=== PATIENT | male | born 1970 | race Caucasian/White ===

== ENCOUNTER 2018-08-03 17:20 | Inpatient (IN) | payer OTHER, SELFPAY ==
--- NOTE | 2018-08-03 17:52 | EDPHYS ---
Physician Documentation [facility] Name: Chandrakant Story Age: 48 yrs Sex: Male : 1970 Arrival Date: 08/03/2018 Time: 17:22 Bed 20 Private MD: None, None ED Physician Ronen Ramirez HPI: 08/03 18:27 This 48 yrs old Male presents to ER via Ambulatory with complaints of gs Numbness Of Face - SENT BY DRMelvin 18:27 The patient's problem is reported as a facial droop, bilaterally. Onset: The gs symptoms/episode began/occurred 2 day(s) ago, and became worse and became persistent. Context: recent viral illness seen by dr tate sent over for work up. The symptoms are alleviated by nothing. The symptoms are aggravated by nothing. Severity of symptoms: At their worst the symptoms were severe in the emergency department the symptoms are unchanged. The patient has not experienced similar symptoms in the past. Historical: - Allergies: 17:31 No Known Allergies; hb - PMHx: 17:31 Diabetes - NIDDM; hb - PSHx: 17:31 back; hb - Immunization history:: Adult Immunizations up to date. - Social history:: Smoking status: Patient/guardian denies using tobacco. - Ebola Screening: : No symptoms or risks identified at this time. ROS: 18:27 All other systems are negative. gs Exam: 18:27 CT study not indicated or reported. Reason for not performing CT: pt states negative gs at [facility] last night 18:27 Head/Face: Normocephalic, atraumatic. Eyes: Pupils equal round and reactive to light, extra-ocular motions intact. Lids and lashes normal. Conjunctiva and sclera are non-icteric and not injected. Cornea within normal limits. Periorbital areas with no swelling, redness, or edema. ENT: Nares patent. No nasal discharge, no septal abnormalities noted. Tympanic membranes are normal and external auditory canals are clear. Oropharynx with no redness, swelling, or masses, exudates, or evidence of obstruction, uvula midline. Mucous membranes moist. Neck: Trachea midline, no thyromegaly or masses palpated, and no cervical lymphadenopathy. Supple, full range of motion without nuchal rigidity, or vertebral point tenderness. No Meningismus. Chest/axilla: Normal chest wall appearance and motion. Nontender with no deformity. No lesions are appreciated. Cardiovascular: Regular rate and rhythm with a normal S1 and S2. No gallops, murmurs, or rubs. Normal PMI, no JVD. No pulse deficits. Respiratory: Lungs have equal breath sounds bilaterally, clear to auscultation and percussion. No rales, rhonchi or wheezes noted. No increased work of breathing, no retractions or nasal flaring. Abdomen/GI: Soft, non-tender, with normal bowel sounds. No distension or tympany. No guarding or rebound. No evidence of tenderness throughout. Back: No spinal tenderness. No costovertebral tenderness. Full range of motion. Skin: Warm, dry with normal turgor. Normal color with no rashes, no lesions, and no evidence of cellulitis. MS/ Extremity: Pulses equal, no cyanosis. Neurovascular intact. Full, normal range of motion. 18:27 Constitutional: The patient appears in no acute distress, alert. 18:27 Neuro: Orientation: is normal, Mentation: is normal, Cranial nerves: facial droop noted on right, facial droop noted on left, Motor: Sensation: no obvious gross deficits, Gait: is steady. Vital Signs: 17:30 BP 135 / 88; Pulse 95; Resp 16; Temp 98; Pulse Ox 97% on R/A; Pain 2/10; hb 18:00 BP 125 / 89; Pulse 88; Resp 16; Temp 97.8; Pulse Ox 99% on R/A; Pain 2/10; ch 18:40 Weight 98.88 kg; iw 19:05 BP 124 / 82; Pulse 71; Resp 15; Temp 97.8; Pulse Ox 99% on R/A; Pain 4/10; ch 20:50 BP 129 / 90; Pulse 90; Resp 20 S; Pulse Ox 97% on R/A; jd3 Procedures: 18:27 Lumbar Puncture: Patient placed in sitting position. Prepped with Betadine. Draped gs using sterile technique. Procedure unsuccessful. Patient tolerated well. went midline just above midline scar, hit bone. MDM: 17:35 Patient medically screened. gs 18:27 Differential diagnosis: paralysis, metabolic disorder, gbm, everett wheat. Data gs reviewed: vital signs, nurses notes. 08/03 17:37 Order name: CBC with Diff gs 08/03 17:37 Order name: Basic Metabolic Panel 08/03 17:37 Order name: Blood Culture* 08/03 17:37 Order name: Csf Culture 08/03 17:37 Order name: Fluid Cell Count,Body 08/03 17:37 Order name: Spinal Fluid Profile 08/03 17:37 Order name: Csf Glucose 08/03 17:37 Order name: Csf Total Protein 08/03 19:56 Order name: Body Fluid Cell Count EDMA 08/03 19:56 Order name: Protein Electo w/M Jose Elias Serum EDMS 08/03 19:56 Order name: Thyroid Stimulating Hormone EDMA 08/03 19:56 Order name: Gram Stain EDMA 08/03 20:01 Order name: CSF Glucose EDMA 08/03 20:01 Order name: CSF Total Protein EDMA 08/03 17:37 Order name: LP Setup; Complete Time: 19:03 08/03 17:37 Order name: LP Consents; Complete Time: 19:03 08/03 20:01 Order name: Angiotensin Converting Enzyme EDMA 08/03 20:09 Order name: Brain W/Wo Cont EDMA 08/03 20:10 Order name: Fluoro Guide Spinal Inj EDMA 08/03 20:11 Order name: Protime (+INR) EDMA 08/03 20:11 Order name: PTT, Activated Partial Thromb EDMA 08/03 21:13 Order name: RPR EDMA 08/03 21:37 Order name: Sedimentation Rate, Westergren EDMA 08/03 22:24 Order name: Vitamin D, 25 ([place]), TOTAL EDMS Administered Medications: 18:20 Drug: NS 0.9% 1000 ml Route: IV; Rate: 1 bolus; Site: left hand; ch 19:20 Follow up: Response: No adverse reaction; IV Status: Completed infusion; IV Intake: jd3 1000ml 18:40 Drug: Zofran 4 mg Route: IVP; Site: left hand; ch 19:30 Follow up: Response: No adverse reaction jd3 Disposition: 08/03/18 17:51 Hospitalization ordered by Maribel Bates for Inpatient Admission. 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 - Bed requested for Intensive Care Unit. - Status is Inpatient Admission. jd3 - Condition is Stable. - Problem is new. - Symptoms are resolved. UTI on Admission? No Critical care time excluding procedures: 18:27 Critical care time: Bedside Care: 10 minutes, Consultation: 10 minutes, Family gs Intervention: 10 minutes. Total time: 30 minutes Signatures: Dispatcher [employer] EDMA Maki Alvarado rg2 Spring Pruett, RN Mary Lomeli ch, RN RN kl Baxter, Heather, RN RN Ronen Ramirez MD MD gs Davies, Jonathon, RN RN jd3 Corrections: (The following items were deleted from the chart) 18:05 17:38 Head Brain Wo Cont+CT.RAD.BRZ ordered. [facility] EDMA 18:42 18:04 Brain With Cont ordered. [facility] EDMA 18:58 17:51 Hospitalization Ordered by Maribel Bates MD for Inpatient Admission. Preliminary rg2 diagnosis is Guillain-Gladbrook syndrome. Bed requested for Telemetry/MedSurg (Inpatient). Status is Inpatient Admission. Condition is Stable. Problem is new. Symptoms are resolved. UTI on Admission? No. gs 20:10 19:56 Fluoro Guide Spinal Inj ordered. [facility] EDMA 21:21 18:58 08/03/2018 17:51 Hospitalization Ordered by Maribel Bates MD for Inpatient kl Admission. 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 Bed requested for Telemetry/MedSurg (Inpatient). Status is Inpatient Admission. Condition is Stable. Problem is new. Symptoms are resolved. UTI on Admission? No. rg2 22:34 21:21 08/03/2018 17:51 Hospitalization Ordered by Maribel Bates MD for Inpatient jd3 Admission. 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 Bed requested for Intensive Care Unit. Status is Inpatient Admission. Condition is Stable. Problem is new. Symptoms are resolved. UTI on Admission? No. kl
--- NOTE | 2018-08-03 17:52 | ER ---
Nurse's Notes [facility] Name: Chandrakant Story Age: 48 yrs Sex: Male : 1970 Arrival Date: 08/03/2018 Time: 17:22 Bed 20 Private MD: None, None Diagnosis: Guillain-[place] syndrome Presentation: 08/03 17:29 Presenting complaint: Patient states: Sent by Dr. Hedrick for bilateral facial numbness hb .and slurred speech. Transition of care: patient was received from another setting of care (hospital). Onset of symptoms was August 03, 2018. Risk Assessment: Do you want to hurt yourself or someone else? Patient reports no desire to harm self or others. 17:29 Method Of Arrival: Ambulatory hb 17:29 Acuity: KATE 3 hb 21:02 Initial Sepsis Screen: Does the patient meet any 2 criteria? No. Patient's initial jd3 sepsis screen is negative. Does the patient have a suspected source of infection? No. Patient's initial sepsis screen is negative. Care prior to arrival: None. Historical: - Allergies: 17:31 No Known Allergies; hb - PMHx: 17:31 Diabetes - NIDDM; hb - PSHx: 17:31 back; hb - Immunization history:: Adult Immunizations up to date. - Social history:: Smoking status: Patient/guardian denies using tobacco. - Ebola Screening: : No symptoms or risks identified at this time. Screenin:05 Abuse screen: Denies threats or abuse. Denies injuries from another. Nutritional ch screening: No deficits noted. Tuberculosis screening: No symptoms or risk factors identified. Fall Risk None identified. Assessment: 18:00 General: Appears in no apparent distress. uncomfortable, Behavior is calm, cooperative, ch appropriate for age. Pain: Denies pain. Neuro: Level of Consciousness is awake, alert, obeys commands, Oriented to person, place, time, situation, Interventional Radiology Tech are equal bilaterally Moves all extremities. Full function Gait is steady, Speech is normal, Facial symmetry appears normal, Facial symmetry: tongue is midline, Pupils are PERRLA, Reports blurred vision dizziness, paresthesias weakness. Respiratory: Airway is patent Respiratory effort is even, unlabored, Breath sounds are clear bilaterally. GI: No signs and/or symptoms were reported involving the gastrointestinal system. Derm: Skin is pale. 19:26 Reassessment: Patient appears in no apparent distress at this time. Patient and/or ch family updated on plan of care and expected duration. Pain level reassessed. Patient is alert, oriented x 3, equal unlabored respirations, skin warm/dry/pink. Patient states feeling better. Patient states symptoms have improved. 20:15 Reassessment: started IGG. jd3 20:30 Reassessment: Patient appears in no apparent distress at this time. No changes from jd3 previously documented assessment. Patient and/or family updated on plan of care and expected duration. Pain level reassessed. Patient is alert, oriented x 3, equal unlabored respirations, skin warm/dry/pink. 21:30 Reassessment: Patient appears in no apparent distress at this time. No changes from jd3 previously documented assessment. Patient and/or family updated on plan of care and expected duration. Pain level reassessed. Patient is alert, oriented x 3, equal unlabored respirations, skin warm/dry/pink. 22:15 Reassessment: started second vile of IGG. jd3 22:33 Reassessment: Patient appears in no apparent distress at this time. No changes from jd3 previously documented assessment. Patient and/or family updated on plan of care and expected duration. Pain level reassessed. Patient is alert, oriented x 3, equal unlabored respirations, skin warm/dry/pink. Vital Signs: 17:30 BP 135 / 88; Pulse 95; Resp 16; Temp 98; Pulse Ox 97% on R/A; Pain 2/10; hb 18:00 BP 125 / 89; Pulse 88; Resp 16; Temp 97.8; Pulse Ox 99% on R/A; Pain 2/10; ch 18:40 Weight 98.88 kg; iw 19:05 BP 124 / 82; Pulse 71; Resp 15; Temp 97.8; Pulse Ox 99% on R/A; Pain 4/10; ch 20:50 BP 129 / 90; Pulse 90; Resp 20 S; Pulse Ox 97% on R/A; jd3 ED Course: 17:22 Patient arrived in ED. sb2 17:23 None, None is Private Physician. sb2 17:30 Triage completed. hb 17:31 Arm band placed on left wrist. hb 17:35 Ronen Ramirez MD is Attending Physician. gs 17:46 Spring Pruett, RN is Primary Nurse. 17:50 Maribel aBtes MD is Hospitalizing Provider. gs 17:55 No apparent distress. Resting quietly. ch 17:55 Missed attempt(s): 20 gauge in left forearm. Bleeding controlled, band aid applied, catheter tip intact. 18:00 Inserted saline lock: 20 gauge in left hand, using aseptic technique. Blood collected. 18:30 Assist provider with lumbar puncture: Set up LP tray. Performed by Ronen Ramirez MD Procedure unsuccessful. Patient tolerated well. after procedure pt is pale, diaphoretic, and nauseous. erp at bedside, pt medicated per orders. 19:23 Patient has correct armband on for positive identification. Placed in gown. Bed in low ch position. Call light in reach. Side rails up X 1. Adult w/ patient. Report given to Andrzej Morrison. Pulse ox on. NIBP on. Pillow given. 19:25 Inserted saline lock: 18 gauge in right antecubital area, using aseptic technique. Blood collected. 20:48 Prince Javed RN is Primary Nurse. jd3 21:03 Patient admitted, IV remains in place. jd3 Administered Medications: 18:20 Drug: NS 0.9% 1000 ml Route: IV; Rate: 1 bolus; Site: left hand; 19:20 Follow up: Response: No adverse reaction; IV Status: Completed infusion; IV Intake: jd3 1000ml 18:40 Drug: Zofran 4 mg Route: IVP; Site: left hand; 19:30 Follow up: Response: No adverse reaction jd3 Intake: 19:20 IV: 1000ml; Total: 1000ml. jd3 Outcome: 17:51 Decision to Hospitalize by Provider. gs 22:33 Admitted to ICU accompanied by nurse, accompanied by tech, via stretcher, room 6, on jd3 monitor, with chart, Report called to Lulu PRIETO 22:33 Condition: stable 22:33 Instructed on the need for admit, Demonstrated understanding of instructions. 22:34 Patient left the ED. jd3 Signatures: Spring Pruett RN RN ch Williams, Irene, RN RN Debi Garg RN RN Ronen Ramirez MD MD Javed, Prince, RN RN jd3 [place], [place] sb2 Corrections: (The following items were deleted from the chart) 17: 17:29 Acuity: KATE 2 hb hb 17:33 17:30 BP 153 / 118; Pulse 95bpm; Resp 16bpm; Pulse Ox 97% RA; Temp 98F; Pain 2/10; hb hb
--- NOTE | 2018-08-03 18:08 | P.HP ---
Certification for Inpatient Patient admitted to: Inpatient With expected LOS: >2 Midnights Patient will require the following post-hospital care: None Practitioner: I am a practitioner with admitting privileges, knowledge of patient current condition, hospital course, and medical plan of care. Services: Services provided to patient in accordance with Admission requirements found in Title 42 Section 412.3 of the Code of Federal Regulations Patient History Date of Service: 08/04/18 Primary Care Provider: Dr Hedrick Neurology History of Present Illness: A 48-year-old gentleman with history of diabetes. Patient presented to the ER with complaints of having facial numbness and weakness. Patient stated that 2 months ago he had Cortes's palsy noted on the left side of his face and subsequently developed viral illness and lives at last week charge home but post discharge started developing right facial weakness and worsening of the right facial weakness as well. Patient went to [facility] emergency department last night and was treated and released from the and was asked to follow up with neurologist. Patient was seen in the neurology office today with Dr. gold and was sent over to the ER for further workup. There was a concern for Guillain-[place] due to bilateral Cortes's palsy symptoms. Patient started having bilateral facial weakness and worsening of his dysarthria. Patient is decided to come to the ER for further workup. Allergies No Known Allergies Allergy (Unverified 08/03/18 19:40) Home medications list reviewed: Yes Home Medications: Empagliflozin/Metformin HCl [Synjardy 12.5-500 mg Tablet] 1 tab PO BID 08/03/18 Rosuvastatin Calcium 1 tab PO DAILY 08/03/18 - Past Medical/Surgical History Has patient received pneumonia vaccine in the past: No Diabetic: Yes -: type 2 Dm Past Surgical History: Reviewed- Non-Contributory - Family History Family History: Reviewed- Non-Contributory - Family History Father -: Diabetes Mother -: Lung disease Brother -: Heart disease Review of Systems 10-point ROS is otherwise unremarkable Physical Examination - Physical Exam General: Alert, In no apparent distress HEENT: Atraumatic, PERRLA, Mucous membr. moist/pink, EOMI, Sclerae nonicteric Neck: Supple, 2+ carotid pulse no bruit, No LAD, Without JVD or thyroid abnormality Respiratory: Clear to auscultation bilaterally, Normal air movement Cardiovascular: Regular rate/rhythm, Normal S1 S2 Gastrointestinal: Normal bowel sounds, No tenderness Musculoskeletal: No tenderness Integumentary: No rashes Neurological: Normal speech, Abnormal strength, Abnormal tone, Abnormal sensation, Abnormal cranial nerve function, Abnormal reflexes Lymphatics: No axilla or inguinal lymphadenopathy Assessment and Plan - Problems (Diagnosis) (1) Cortes's palsy Onset Date: 08/04/18 Current Visit: Yes Status: Acute Plan: patient with BL Cortes's Palsy -High risk for GB -neurology consulted. Awaiting Reccs (2) Guillain [place] syndrome Onset Date: 08/04/18 Current Visit: Yes Status: Acute Plan: Possible GB syndrome with ascending neurological Deficiet and BL bells Palsy -IV IG 400mg/kg -LP ordered -Neurology Consulted. Awaiting Reccs -MRI, RPR, vitamin B12, vitamin-D Lyme and CHAPO pending at this time (3) Diabetes Onset Date: 08/04/18 Current Visit: Yes Status: Chronic Plan: ISS Qualifiers: Diabetes mellitus type: type 2 Diabetes mellitus fpc insulin use: without fpc use Diabetes mellitus complication status: without complication Qualified Code(s): E11.9 - Type 2 diabetes mellitus without complications Discharge Plan: Home Plan to discharge in: 72 Hours - Advance Directives Does patient have a Living Will: No Does patient have a Durable POA for Healthcare: No - Code Status/Comfort Care Code Status Assessed: Yes Critical Care: No
[2018-08-03] MEDS ORDERED: [UNRECOGNIZED DRUG - OTHER] IV SCH (18:30)
[2018-08-03] MEDS ORDERED: MALTOSE IV SCH (18:30)
[2018-08-03] MEDS ORDERED: ONDANSETRON 4 MG/2 ML VIAL ONE (18:31)
[2018-08-03] MEDS ORDERED: NA CHLORIDE 0.9% 1,000 ML ONE (18:31)
[2018-08-03] MEDS ORDERED: NA CHLORIDE 0.9% 100 ML IV ONE (18:52)
[2018-08-03 18:56] LABS: Absolute Monocytes 0.9 K/uL (0.1-1.3); Absolute Neutrophil 8.5 K/uL (1.8-8.0); Basophils % 0.3 % (0-1.3); Eosinophils % 0.1 % (0-4.4); Hematocrit 45.1 % (39.6-49.0); Lymphocytes % 23.8 % (15.3-44.8); MCV 90.1 fL (80-100); MPV 8.1 fL (7.6-11.3); Monocytes % 6.9 % (3.3-12.3); RBC Red Blood Cell Count 5.01 M/uL (4.33-5.43)
[2018-08-03] MEDS ORDERED: IMMUNE GLOBULIN IV ONE (20:00)
[2018-08-03] MEDS ORDERED: [UNRECOGNIZED DRUG - OTHER] IV ONE (20:00)
[2018-08-03] MEDS ORDERED: ONDANSETRON 4 MG/2 ML VIAL IV PRN (20:19)
[2018-08-03 21:12] LABS: RPR Titer ND
[2018-08-03] MEDS: NA CHLORIDE 0.9% 1,000 ML IV SCH (22:54)
[2018-08-03] MEDS ORDERED: EPOETIN ALFA 10,000 UNIT/ML VIAL ONE (23:42)
[2018-08-03 23:52] LABS: RPR (Rapid Plasma Reagin) NON-REACT (NON-REACT)
[2018-08-04] MEDS ORDERED: FENTANYL CITR 100 MCG/2 ML IV ONE (00:15)
--- NOTE | 2018-08-04 00:28 | CON ---
Date of Consultation: 08/03/2018 Reason: Facial weakness. History: A 48-year-old gentleman with history of diabetes. He actually developed a bland left seven th nerve palsy about 2 months ago. It did not resolve completely. He had an appointment already set up to see me and in the interim developed a diarrheal illness and was hospitalized at [facility] last week, discharged, and then after few days post discharge, developed right facial weakness and worsening left facial weakness, went to the Emergency Department in [place] last night, seen, treated , and released. Labs normal. CT scan of the brain normal. It was felt to be unusual facial diplegi a and bilateral seventh nerve palsies and indeed it is an unusual finding. He presented to my office with the aforementioned. I felt it is prudent given the preceding GI illness, bilateral facial weak ness that the patient thought was worsening with associated dysarthria and areflexia that the patient be evaluated and on the emergently basis, so he was referred to the Emergency Department for possibl e facial brachial variant presentation of Guillain-[place] syndrome. LP was attempted. The patient link s had prior lumbar fusion, so it was unsuccessful. He is going to be admitted to the hospital for po ssible facial brachial variant Guillain-[place] syndrome. We are going to plan to start him on IgG thi s evening, obtain brain MRI and CSF analysis tomorrow. Past Medical History: As alluded to. Medications: Reviewed. Allergies: NONE. Social History: He is EMT. Normally independent activities of daily living. . Review of Systems: General: Ear pain. Eyes: Incomplete lid closure bilaterally, left greater than right. Ears, nose, Throat: Hyperacusis. Cardiovascular: He has had some tachycardia, labile blood pressures recently as well also suggestive of some autonomic instability that is commonly seen with Guillain-[place]. GI: Recent GI illness. : Negative. Musculoskeletal: Does not notice weakness. Denies extremity paresthesias. Neurologic: As noted. Psychiatric: Negative. Endocrine: Diabetes. Hematologic: Negative. Physical Examination: Vital Signs: He is afebrile. Vitals are stable. General: He is awake, alert, oriented. Neurologic: He has moderate bilateral seventh nerve palsies, left greater than right. Lid closure i s preserved, but face is quite weak. Oropharynx has full strength. Neck flexion-extension full. Fi elds full. Extremity strength full. Sensation intact. Reflexes trace except for 1+ for knee jerks. Toes are downgoing. Cerebellar exam demonstrates no ataxia. Gait is normal. Pertinent Laboratory Data: White count 12.4, otherwise normal. Creatinine 1, glucose 119. Outside CT as noted. Impression: Possible Guillain-[place]. Plan: Brain MRI. Radiology consult for fluoro-guided LP. Can check an ACHR antibody, Lyme titer, A ce level, differential, bilateral facial weakness, leg pain, and Lyme disease. Brain MRI with and wi thout. Thank you for the consult. We will continue to follow with you. VENITA Voice ID: [id number] Report ID: [id number]
[2018-08-04] MEDS: FENTANYL CITR 100 MCG/2 ML IV PRN ×5 (02:48→22:23)
[2018-08-04 05:16] LABS: Absolute Lymphocytes (CBC) 2.9 K/uL (0.7-4.9); Absolute Monocytes 0.9 K/uL (0.1-1.3); Absolute Neutrophil 5.1 K/uL (1.8-8.0); Basophils % 0.7 % (0-1.3); Hematocrit 38.4 % (39.6-49.0); MCH 31.9 pg (27.0-35.0); MCV 90.6 fL (80-100); MPV 7.9 fL (7.6-11.3); Monocytes % 9.8 % (3.3-12.3); RBC Red Blood Cell Count 4.24 M/uL (4.33-5.43)
[2018-08-04 05:30] LABS: Albumin 3.6 g/dL (3.4-5.0); Bilirubin Total 0.4 mg/dL (0.2-1.0); Magnesium 2.3 mg/dL (1.8-2.4); Phosphorus 4.7 mg/dL (2.5-4.9); Potassium 3.8 mmol/L (3.5-5.1); Protein, Total 7.3 g/dL (6.4-8.2)
[2018-08-04] MEDS ORDERED: POTASSIUM 25 MEQ EFFERV TAB PO ONE (06:00)
[2018-08-04] MEDS: NA CHLORIDE 0.9% 1,000 ML IV SCH ×3 (08:19→19:37)
--- NOTE | 2018-08-04 10:30 | RAD REPORT ---
EXAM DESCRIPTION: MRI - Brain W/Wo Cont - 08/04/2018 10:14 am CLINICAL HISTORY: Seventh nerve palsy. Facial pain COMPARISON: None TECHNIQUE: Axial, sagittal, and coronal magnetic resonance images of the brain were obtained. 20 cc MultiHance administered intravenously FINDINGS: No abnormal signal is present within the brain. No abnormal enhancement of seventh nerve is visualized. No abnormal enhancement within the brain is n oted Diffusion-weighted/ADC mapping does not reveal evidence of acute infarction. The ventricles are normal caliber. An extra-axial fluid collection is. The sinuses and mastoids are clear. IMPRESSION: Unremarkable brain MRI
--- NOTE | 2018-08-04 11:50 | RAD REPORT ---
EXAM DESCRIPTION: RAD - Lumbar Puncture For Dx - 08/04/2018 11:44 am CLINICAL HISTORY: Headache, elevated protein COMPARISON: No comparisons TECHNIQUE: The procedure, risks and alternatives to the procedure were discussed with the patient in detail. After answering all questions, both oral and written consent were obtained. Time-out procedu re was performed. The patient was placed in an oblique prone position on the fluoroscopic table. The skin of the lower back was prepped and draped in the usual sterile fashion. After anesthetizing the skin and deeper sof t tissues with 1% lidocaine, a 22 gauge needle was advanced into the thecal sac at the L4 level. 15 cc of CSF were obtained and sent for requested lab studies. Opening pressure was normal of 13. At the conclusion of the procedure the needle was withdrawn and a sterile bandage placed over the pun cture site. The patient tolerated the procedure well without immediate complications. Total fluoro time: 0.6 minutes Images obtained: 2 IMPRESSION: Successful fluoroscopic guided lumbar puncture. All obtained fluid was sent to the lab f or studies requested by the referring physician.
[2018-08-04] MEDS ORDERED: GLUCAGON 1 MG/VIAL IM PRN (11:53)
[2018-08-04] MEDS ORDERED: D50W 25 GM/50 ML SYRINGE IV PRN (11:53)
[2018-08-04 12:22] LABS: CSF Glucose 93 mg/dL (40-70)
[2018-08-04 13:09] LABS: Appearance CLEAR (CLEAR); Body Fluid Source CSF; Color of fluid Colorless (COLORLESS)
[2018-08-04 13:10] LABS: Appearance SLT. TURBID (CLEAR); Body Fluid Source CSF; Body Fluid WBC 0 /mm^3; Body Fluid WBC 1 /mm^3; Color of fluid Pink (COLORLESS)
--- NOTE | 2018-08-04 13:39 | P.PN ---
Subjective Date of Service: 08/04/18 Primary Care Provider: Dr Hedrick Neurology pt seen and examined at bedside with RN. Chart Reviewed and case DW [facility]. LP scheduled for today. No c/o overnight. Feeling apprehensive due to sudden worsening of his symptoms Review of Systems 10-point ROS is otherwise unremarkable Physical Examination - Vital Signs Temperature: 97.9 F Blood Pressure: 148/85 Pulse: 73 Respirations: 20 Pulse Ox (%): 95 - Physical Exam General: Alert, In no apparent distress HEENT: Atraumatic, PERRLA, EOMI Neck: Supple, JVD not distended Respiratory: Clear to auscultation bilaterally, Normal air movement Cardiovascular: Regular rate/rhythm, Normal S1 S2 Gastrointestinal: Normal bowel sounds, No tenderness Musculoskeletal: No tenderness Integumentary: No rashes Neurological: Abnormal speech, Abnormal cranial nerve function, Abnormal reflexes, Abnormal affect Lymphatics: No axilla or inguinal lymphadenopathy - Studies Laboratory Data (last 24 hrs) 08/03/18 18:00: Sodium 137, Potassium 4.0, BUN 19 H, Creatinine 1.00, Glucose 119 H 08/03/18 18:00: WBC 12.4 H, Hgb 15.5, Hct 45.1, Plt Count 227 Medications List Reviewed: Yes Assessment And Plan - Current Problems (Diagnosis) (1) Cortes's palsy Onset Date: 08/04/18 Current Visit: Yes Status: Acute Plan: patient with BL Cortes's Palsy -High risk for GB -neurology consulted. 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 Reccs Apprecaited -MRI Negative at this time -RPR, vitamin B12, vitamin-D Lyme and CHAPO pending at this time -LP lab work pending as well (3) Diabetes Onset Date: 08/04/18 Current Visit: Yes Status: Chronic Plan: ISS Qualifiers: Diabetes mellitus type: type 2 Diabetes mellitus intermediate insulin use: without watermelon inspector use Diabetes mellitus complication status: without complication Qualified Code(s): E11.9 - Type 2 diabetes mellitus without complications Discharge Plan: Home Plan to discharge in: 48 Hours - Code Status/Comfort Care Code Status Assessed: Yes Critical Care: No
[2018-08-04] MEDS: INSULIN -REGULAR HUMAN 50 UNIT/0.5 ML ML SQ SCH ×2 (16:30→20:56)
[2018-08-04] MEDS: IMMUNE GLOBULIN IV SCH (20:32)
[2018-08-04] MEDS: MALTOSE IV SCH (20:32)
[2018-08-04] MEDS: GABAPENTIN 300 MG CAP PO SCH (20:55)
[2018-08-04] MEDS ORDERED: GABAPENTIN 300 MG CAP PO SCH (21:00)
--- NOTE | 2018-08-05 01:24 | PN ---
Date of Progress Note: 08/04/2018 Reason: Guillain-[place] variant. Interval History: The patient is stable. Brain MRI, normal. Slight increase in the creatinine afte r the first IgG infusion, has come down some this evening. CSF; 0 white cells, 0 red cells, slightly traumatic on 1 tube with 1 white cell and 4000 red cells, glucose 93, protein 65, even the red cells , that is a significant elevation in the CSF protein. B12 was normal. Sedimentation rate, normal. Additional labs pending. Thyroid, normal. I think he can safely be transferred to the floor. Carmella nue the IgG. We will check a Campylobacter titer having quite a bit of neuritic pain on the right. Physical Examination: Neurologic: He is awake, alert, and oriented. [id number] bilateral 7th nerve palsies, left greater than right. Cranial nerves otherwise normal. Neck flexion, extension full, extremity streng th full. Sensation normal. Reflexes trace at the knees, otherwise absent. Toes are downgoing. 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 Plan: Continue IgG. Check Campylobacter titer. Increase the gabapentin for pain. He is on fentany l IV as well. We will continue to follow with you. Time: 40 minutes. VENITA Voice ID: [id number] Report ID: [id number]
[2018-08-05] MEDS: ACETAMINOPHEN 500 MG TAB PO PRN ×2 (03:11→08:14)
[2018-08-05] MEDS: FENTANYL CITR 100 MCG/2 ML IV PRN ×2 (04:57→11:43)
[2018-08-05 06:16] LABS: Absolute Lymphocytes (CBC) 2.2 K/uL (0.7-4.9); Absolute Monocytes 0.6 K/uL (0.1-1.3); Absolute Neutrophil 5.2 K/uL (1.8-8.0); Basophils % 0.8 % (0-1.3); Eosinophils % 1.1 % (0-4.4); Lymphocytes % 26.8 % (15.3-44.8); MCH 31.6 pg (27.0-35.0); MCV 90.6 fL (80-100); Monocytes % 7.6 % (3.3-12.3); RBC Red Blood Cell Count 4.53 M/uL (4.33-5.43)
[2018-08-05 06:39] LABS: Albumin 3.9 g/dL (3.4-5.0); Bilirubin Total 0.6 mg/dL (0.2-1.0); Magnesium 2.2 mg/dL (1.8-2.4); Phosphorus 3.4 mg/dL (2.5-4.9); Potassium 3.8 mmol/L (3.5-5.1); Protein, Total 8.7 g/dL (6.4-8.2)
[2018-08-05] MEDS: INSULIN -REGULAR HUMAN 50 UNIT/0.5 ML ML SQ SCH ×4 (07:30→20:13)
[2018-08-05] MEDS ORDERED: POTASSIUM CL SA 10 MEQ TAB PO ONE (07:38)
[2018-08-05] MEDS: GABAPENTIN 300 MG CAP PO SCH ×3 (08:15→20:13)
[2018-08-05] MEDS: NA CHLORIDE 0.9% 1,000 ML IV SCH ×2 (10:41→11:41)
--- NOTE | 2018-08-05 11:58 | P.PN ---
Subjective Date of Service: 08/05/18 Primary Care Provider: Dr Hedrick Neurology pt seen and examined at bedside with RN. Chart Reviewed and case DW [facility]. Feeling apprehensive due to sudden worsening of his symptoms. Now improving slowly. having Neurpathic Pain on face and ABRAHAM Review of Systems 10-point ROS is otherwise unremarkable Physical Examination - Vital Signs Temperature: 99.0 F Blood Pressure: 150/98 Pulse: 90 Respirations: 20 Pulse Ox (%): 95 - Physical Exam General: Alert, In no apparent distress HEENT: Atraumatic, PERRLA, EOMI Neck: Supple, JVD not distended Respiratory: Clear to auscultation bilaterally, Normal air movement Cardiovascular: Regular rate/rhythm, Normal S1 S2 Gastrointestinal: Normal bowel sounds, No tenderness Musculoskeletal: No tenderness Integumentary: No rashes Neurological: Normal speech, Abnormal sensation, Abnormal cranial nerve function , Abnormal reflexes, Abnormal affect Lymphatics: No axilla or inguinal lymphadenopathy - Studies Microbiology Data (last 24 hrs): 08/03/18 11:01 Cerebral Spinal Fluid Gram Stain - Final 08/03/18 18:00 Blood - Blood Anaerobic Blood Culture - Final Medications List Reviewed: Yes Assessment And Plan - Current Problems (Diagnosis) (1) Cortes's palsy Onset Date: 08/04/18 Current Visit: Yes Status: Acute Plan: patient with BL Cortes's Palsy -High risk for GB -neurology consulted. Reccs appreciated -Lab work Negative thus far. 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 Reccs Appreciated -Lab work negative Thus far. -Pending Camplyobacter titer (3) Diabetes Onset Date: 08/04/18 Current Visit: Yes Status: Chronic Plan: ISS Qualifiers: Diabetes mellitus type: type 2 Diabetes mellitus correction insulin use: without terminal gauger use Diabetes mellitus complication status: without complication Qualified Code(s): E11.9 - Type 2 diabetes mellitus without complications Discharge Plan: Home Plan to discharge in: 48 Hours - Code Status/Comfort Care Code Status Assessed: Yes Critical Care: No
[2018-08-05] MEDS: HYDROCODONE/APAP 10/325 TAB PO PRN ×2 (16:51→23:28)
[2018-08-05] MEDS: IMMUNE GLOBULIN IV SCH (20:12)
[2018-08-05] MEDS: MORPHINE 4 MG/ML SYR IV PRN (20:12)
[2018-08-05] MEDS: MALTOSE IV SCH (20:12)
--- NOTE | 2018-08-06 01:40 | PN ---
Reason: Acute polyneuropathy. Interval History: The patient is improving slowly. Has little better lid closure. Has some actual evidence with nasolabial fold, but still has significant facial diplegia. Swallowing is good. Not d eveloping extremity weakness. RPR negative. Lyme titer pending. Campylobacter pending. CHAPO pendin g. SPE pending. Still has quite a bit of pain. We will increase gabapentin further. Physical Examination: General: On examination, he is awake and alert. Neurologic: Bilateral seventh nerve palsies, moderate to severe. Ocular motion full. [place] full. Strength full. Reflexes suppressed. Cerebellar examination demonstrates no ataxia. Pertinent Laboratory Data: Creatinine is stable at 1.2. 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 Plan: Continue IgG. I think he would be safe to be transferred to the floor. Increase gabapentin f or pain control. There is no evidence of any type of somnolence. We will continue to follow with alexa NATHAN Voice ID: [id number] Report ID: [id number]
[2018-08-06] MEDS: MORPHINE 4 MG/ML SYR IV PRN ×2 (02:38→22:05)
[2018-08-06] MEDS: NA CHLORIDE 0.9% 1,000 ML IV SCH ×3 (04:00→17:55)
[2018-08-06 05:18] LABS: Absolute Lymphocytes (CBC) 2.1 K/uL (0.7-4.9); Absolute Monocytes 0.6 K/uL (0.1-1.3); Absolute Neutrophil 3.2 K/uL (1.8-8.0); Eosinophils % 3.3 % (0-4.4); Hematocrit 40.7 % (39.6-49.0); Lymphocytes % 34.2 % (15.3-44.8); MCH 31.8 pg (27.0-35.0); MCV 89.3 fL (80-100); MPV 7.7 fL (7.6-11.3); Monocytes % 9.9 % (3.3-12.3); RBC Red Blood Cell Count 4.55 M/uL (4.33-5.43)
[2018-08-06 05:45] LABS: Albumin 3.6 g/dL (3.4-5.0); Bilirubin Total 0.5 mg/dL (0.2-1.0); Magnesium 2.1 mg/dL (1.8-2.4); Phosphorus 3.5 mg/dL (2.5-4.9); Potassium 3.9 mmol/L (3.5-5.1)
[2018-08-06] MEDS: INSULIN -REGULAR HUMAN 50 UNIT/0.5 ML ML SQ SCH ×4 (07:30→21:00)
[2018-08-06] MEDS ORDERED: POTASSIUM CL SA 10 MEQ TAB PO ONE (07:54)
[2018-08-06] MEDS: HYDROCODONE/APAP 10/325 TAB PO PRN ×2 (08:03→17:07)
[2018-08-06] MEDS: GABAPENTIN 300 MG CAP PO SCH ×3 (08:04→21:44)
[2018-08-06] MEDS ORDERED: LANO/MINERAL OIL/PETRO 3.5 GM EACH EYE PRN (14:22)
--- NOTE | 2018-08-06 14:44 | P.PN ---
Subjective Date of Service: 08/06/18 Primary Care Provider: Dr Hedrick Neurology pt seen and examined at bedside with RN. Chart Reviewed and case DW [facility]. Improving slowly. having Neurpathic Pain on face and ABRAHAM. Controlled with Pain mgmt Review of Systems 10-point ROS is otherwise unremarkable Physical Examination - Vital Signs Temperature: 98.8 F Blood Pressure: 150/96 Pulse: 94 Respirations: 21 Pulse Ox (%): 96 - Physical Exam General: Alert, In no apparent distress HEENT: Atraumatic, PERRLA, EOMI Neck: Supple, JVD not distended Respiratory: Clear to auscultation bilaterally, Normal air movement Cardiovascular: Regular rate/rhythm, Normal S1 S2 Gastrointestinal: Normal bowel sounds, No tenderness Musculoskeletal: No tenderness Integumentary: No rashes Neurological: Abnormal tone, Abnormal sensation, Abnormal cranial nerve function Lymphatics: No axilla or inguinal lymphadenopathy - Studies Microbiology Data (last 24 hrs): 08/03/18 11:01 Cerebral Spinal Fluid Gram Stain - Final 08/03/18 11:01 Cerebral Spinal Fluid Culture & Sensitivity - Final Medications List Reviewed: Yes Assessment And Plan - Current Problems (Diagnosis) (1) Cortes's palsy Onset Date: 08/04/18 Current Visit: Yes Status: Acute Plan: patient with BL Cortes's Palsy -neurology consulted. Reccs appreciated -Lab work Negative thus far. 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 Reccs Appreciated -Lab work negative Thus far. -Pending Camplyobacter titer (3) Diabetes Onset Date: 08/04/18 Current Visit: Yes Status: Chronic Plan: ISS Qualifiers: Diabetes mellitus type: type 2 Diabetes mellitus jail insulin use: without jail use Diabetes mellitus complication status: without complication Qualified Code(s): E11.9 - Type 2 diabetes mellitus without complications Discharge Plan: Home Plan to discharge in: 48 Hours - Code Status/Comfort Care Code Status Assessed: Yes Critical Care: Yes
[2018-08-06] MEDS: IMMUNE GLOBULIN IV SCH (19:54)
[2018-08-06] MEDS: MALTOSE IV SCH (19:54)
--- NOTE | 2018-08-07 01:25 | PN ---
Date of Progress Note: 08/06/2018 Reason: Guillain-[place] variant. Interval History: The patient is stable. A little better movement of the face today. Creatinine st able, 1.1. Pain control better on the higher dose of the gabapentin. No sedation. No new complaint s. Physical Examination: Neurologic: He is awake, alert, and oriented. Qeloiliu-ah-afagpn bilateral 7th nerve palsies, nasol abial fold a little more prominent than yesterday. Still has incomplete lid closure. Neck flexion, extension full. Tongue full strength. Extremity strength full. Sensation intact. Reflexes are abs ent. Toes are downgoing. Cerebellar exam demonstrates no ataxia. Pertinent Labs: Lyme titer, CHAPO level, and acetylcholine receptor antibody are all still pending. Impression: Guillain-[place] syndrome, improving. Plan: Continue IgG. Repeat CMP in the morning. Anticipate discharge, Thursday. Should not go back t o work for at least a week. We will continue to follow with you. MARIA DE JESUS/ANGELICA Voice ID: [id number] Report ID: [id number]
[2018-08-07] MEDS: HYDROCODONE/APAP 10/325 TAB PO PRN ×2 (01:46→09:16)
[2018-08-07] MEDS: MORPHINE 4 MG/ML SYR IV PRN (04:04)
[2018-08-07] MEDS: NA CHLORIDE 0.9% 1,000 ML IV SCH ×3 (04:04→13:27)
[2018-08-07 06:32] LABS: Absolute Monocytes 0.6 K/uL (0.1-1.3); Absolute Neutrophil 3.6 K/uL (1.8-8.0); Eosinophils % 3.5 % (0-4.4); Hematocrit 40.8 % (39.6-49.0); MCH 31.5 pg (27.0-35.0); MCV 88.1 fL (80-100); MPV 7.8 fL (7.6-11.3); Monocytes % 9.6 % (3.3-12.3); RBC Red Blood Cell Count 4.63 M/uL (4.33-5.43)
[2018-08-07 06:59] LABS: Albumin 3.6 g/dL (3.4-5.0); Bilirubin Total 0.5 mg/dL (0.2-1.0); Potassium 4.1 mmol/L (3.5-5.1); Protein, Total 9.6 g/dL (6.4-8.2)
[2018-08-07] MEDS: INSULIN -REGULAR HUMAN 50 UNIT/0.5 ML ML SQ SCH ×4 (07:30→20:23)
[2018-08-07] MEDS: GABAPENTIN 300 MG CAP PO SCH ×3 (08:05→19:52)
--- NOTE | 2018-08-07 12:36 | P.PN ---
Subjective Date of Service: 08/07/18 Primary Care Provider: Dr Hedrick Neurology pt seen and examined at bedside with RN. Chart Reviewed and case DW [facility]. Improving slowly. having Neurpathic Pain on face and ABRAHAM. Controlled with Pain mgmt Review of Systems 10-point ROS is otherwise unremarkable Physical Examination - Vital Signs Temperature: 98.1 F Blood Pressure: 146/96 Pulse: 104 Respirations: 18 Pulse Ox (%): 91 - Physical Exam General: Alert, In no apparent distress HEENT: Atraumatic, PERRLA, EOMI Neck: Supple, JVD not distended Respiratory: Clear to auscultation bilaterally, Normal air movement Cardiovascular: Regular rate/rhythm, Normal S1 S2 Gastrointestinal: Normal bowel sounds, No tenderness Musculoskeletal: No tenderness Integumentary: No rashes Neurological: Normal speech, Normal tone, Normal affect, Abnormal cranial nerve function (CN 7 palsy BL ) Lymphatics: No axilla or inguinal lymphadenopathy - Studies Microbiology Data (last 24 hrs): 08/03/18 11:01 Cerebral Spinal Fluid Gram Stain - Final 08/03/18 11:01 Cerebral Spinal Fluid Culture & Sensitivity - Final Medications List Reviewed: Yes Assessment And Plan - Current Problems (Diagnosis) (1) Cortes's palsy Onset Date: 08/04/18 Current Visit: Yes Status: Acute Plan: patient with BL Cortes's Palsy -neurology consulted. Reccs appreciated -Lab work Negative thus far. 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 Reccs Appreciated -Lab work negative Thus far. -Pending Camplyobacter titer (3) Diabetes Onset Date: 08/04/18 Current Visit: Yes Status: Chronic Plan: ISS Qualifiers: Diabetes mellitus type: type 2 Diabetes mellitus fdc insulin use: without fdc use Diabetes mellitus complication status: without complication Qualified Code(s): E11.9 - Type 2 diabetes mellitus without complications Discharge Plan: Home Plan to discharge in: 48 Hours - Code Status/Comfort Care Code Status Assessed: Yes Critical Care: No
[2018-08-07] MEDS: TRAMADOL HCL 50 MG TAB PO PRN (13:41)
[2018-08-07] MEDS: ACETAMINOPHEN 500 MG TAB PO PRN (17:46)
--- NOTE | 2018-08-07 18:54 | RAD REPORT ---
EXAM DESCRIPTION: RAD - Chest Single View - 08/07/2018 6:35 pm CLINICAL HISTORY: Pneumonia, elevated white count COMPARISON: None. TECHNIQUE: AP portable chest image was obtained 1822 hours . FINDINGS: Lung volumes are low. No failure, infiltrate or mass. Heart and vasculature are normal. No measurable pleural effusion and no pneumothorax. No gross bony abnormality seen. No acute aortic fin dings suspected. IMPRESSION: No acute cardiopulmonary process.
[2018-08-07] MEDS ORDERED: NA CHLORIDE 0.9% 250 ML IV ONE (19:00)
[2018-08-07] MEDS: IMMUNE GLOBULIN IV SCH (19:52)
[2018-08-07] MEDS: MALTOSE IV SCH (19:52)
[2018-08-07] MEDS ORDERED: DIPHENHYDRAMINE 50 MG/ML VIAL IV ONE (20:00)
[2018-08-07] MEDS ORDERED: HYDROCODONE/APAP 10/325 TAB PO ONE (20:00)
[2018-08-07] MEDS ORDERED: DIPHENHYDRAMINE 25 MG TAB/CAP PO ONE (20:00)
--- NOTE | 2018-08-07 20:44 | PN ---
Date of Progress Note: 08/07/2018 Time: 16:30. Reason: Guillain-[place]. Interval History: The patient is stable. No vomiting. Developing some headaches with IgG infusion. We will pre-hydrate and premedicate with Benadryl. Pain-management alberto, headaches remain problema tic. Hydrocodone has been downgraded to tramadol. We will see how well that works. He is due for d ischarge tomorrow. If he requires a short course of p.o. narcotics, then we will make those arrangem ents tomorrow. Neurologic Examination: He is awake, alert, oriented. Seventh nerve palsy is stable to slightly imp roved. Still does not have full lid closure. Ocular motion full. Tongue full. Neck flexion, exten narinder full. Extremity strength full. Sensation decreased to vibration distally, which is a new findi ng from admission. Reflexes are trace in the knees, otherwise absent. Pertinent Laboratory Data: Creatinine stable 1.1. CBC normal. Sodium 131. Also possibly from IgG infusions. Impression: Guillain-[place] syndrome, stable. Plan: Continue IgG. Premedicate prior to tonight's dose. Anticipate discharge within the next 24 h ours. MARIA DE JESUS/ANGELICA Voice ID: [id number] Report ID: [id number]
[2018-08-08 00:37] LABS: Albumin, (SPE) 4.2 g/dL (3.8-4.8); Alpha-1-Globulins 0.3 g/dL (0.2-0.3); Alpha-2-Globulins 0.7 g/dL (0.5-0.9); Gamma Globulins 0.9 g/dL (0.8-1.7); INTERPRETATION REPORT
[2018-08-08] MEDS: NA CHLORIDE 0.9% 1,000 ML IV SCH ×2 (01:53→08:55)
[2018-08-08] MEDS: TRAMADOL HCL 50 MG TAB PO PRN ×2 (01:53→08:54)
[2018-08-08] MEDS: ACETAMINOPHEN 500 MG TAB PO PRN ×2 (04:58→10:00)
[2018-08-08] MEDS: INSULIN -REGULAR HUMAN 50 UNIT/0.5 ML ML SQ SCH (07:30)
[2018-08-08] MEDS: GABAPENTIN 300 MG CAP PO SCH (08:53)
--- NOTE | 2018-08-08 15:04 | P.DS ---
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 Patient presented to the ER with complaints of having facial numbness and weakness. Patient stated that 2 months ago he had Cortes's palsy noted on the left side of his face and subsequently developed viral illness and lives at [facility] last week charge home but post discharge started developing right facial weakness and worsening of the right facial weakness as well. Patient went to [facility] emergency department last night and was treated and released from the and was asked to follow up with neurologist. Patient was seen in the neurology office today with Dr. gold and was sent over to the ER for further workup. There was a concern for Guillain-[place] due to bilateral Cortes's palsy symptoms. Patient started having bilateral facial weakness and worsening of his dysarthria. Patient is decided to come to the ER for further workup. Hospital Course: Overall during the hospital stay patient remained stable Patient was initially admitted to the hospital for bilateral Cortes's palsy with high risk GB syndrome. Patient was started on IV IgG here in the hospital. Patient completed the total course for the IVIG here in the hospital as well. Patient had no complications during the hospital stay. Did not develop any ascending aortic ascending paralysis. Other than bilateral Cortes's palsy patient did not have any other associated neurological deficit. The patient did have marked improvement in his cranial nerve 7 palsy all year in the hospital. Patient was seen by neurology here in the hospital who recommended the patient get MRI head CT carotid Doppler which were all negative. Extensive workup was done to rule out acute CVA. Patient also had an lumbar puncture done here in the hospital which was negative for any acute abnormality. Patient thus was discharged home under stable condition once he completed the medication for possible GB syndrome. Patient was asked to follow back primary care provider and neurology about 1-2 days post discharge.. Vital Signs/Physical Exam: Temp Pulse Resp BP Pulse Ox 97.9 F 77 17 143/92 H 97 08/08/18 04:00 08/08/18 11:00 08/08/18 11:00 08/08/18 11:00 08/08/18 09:00 General: Alert, In no apparent distress HEENT: Atraumatic, PERRLA, EOMI Neck: Supple, JVD not distended Respiratory: Clear to auscultation bilaterally, Normal air movement Cardiovascular: Regular rate/rhythm, Normal S1 S2 Gastrointestinal: Normal bowel sounds, No tenderness Musculoskeletal: No tenderness Integumentary: No rashes Neurological: Normal speech, Normal tone, Normal affect, Abnormal cranial nerve function (Cranial nerve 7 palsy noted bilaterally. Which improvement since day 1) Lymphatics: No axilla or inguinal lymphadenopathy Laboratory Data at Discharge: WBC 6.5 K/uL (4.3-10.9) 08/07/18 05:55 Hgb 14.6 g/dL (13.6-17.9) 08/07/18 05:55 Hct 40.8 % (39.6-49.0) 08/07/18 05:55 Plt Count 174 K/uL (152-406) 08/07/18 05:55 PT 11.8 SECONDS (9.5-12.5) 08/04/18 04:43 INR 1.00 08/04/18 04:43 APTT 29.9 SECONDS (24.3-36.9) 08/03/18 20:58 Sodium 131 mmol/L (136-145) L 08/07/18 05:55 Potassium 4.1 mmol/L (3.5-5.1) 08/07/18 05:55 BUN 14 mg/dL (7-18) 08/07/18 05:55 Creatinine 1.10 mg/dL (0.55-1.3) 08/07/18 05:55 Glucose 145 mg/dL (74-106) H 08/07/18 05:55 Phosphorus 3.5 mg/dL (2.5-4.9) 08/06/18 04:46 Magnesium 2.1 mg/dL (1.8-2.4) 08/06/18 04:46 Total Bilirubin 0.5 mg/dL (0.2-1.0) 08/07/18 05:55 AST 22 U/L (15-37) 08/07/18 05:55 ALT 35 U/L (12-78) 08/07/18 05:55 Alkaline Phosphatase 74 U/L (45-117) 08/07/18 05:55 Home Medications: Empagliflozin/Metformin HCl [Synjardy 12.5-500 mg Tablet] 1 tab PO BID 08/03/18 Rosuvastatin Calcium 1 tab PO DAILY 08/03/18 Gabapentin 600 mg PO TID #60 tablet 08/08/18 traMADol HCL [Ultram*] 50 mg PO Q6H PRN #20 tab 08/08/18 New Medications: Gabapentin 600 mg PO TID #60 tablet traMADol HCL [Ultram*] 50 mg PO Q6H PRN #20 tab PRN Reason: Pain Patient Discharge Instructions: Please f.u with PCP and Dr Hedrick in 1 to 2 days post discharge. New medication. Gabapentin 600mg TID. Tramadol 50mg q6h Diet: Regular Activity: Ad dick Followup: Josesito Hedrick MD [ACTIVE - CAN ADMIT] - 1-2 Weeks
--- NOTE | 2018-08-09 13:16 | EKG ---
Test Date: 2018-08-07 Test Time: 16:37:37 Mortgage Or Loan Underwriter: GAIL MEASUREMENT RESULTS: Intervals: Rate: 100 OR: 164 QRSD: 90 QT: 338 QTc: 436 [place]: P: 43 OR: 164 QRS: 51 T: 38 INTERPRETIVE STATEMENTS: Normal sinus rhythm Normal ECG No previous ECG available for comparison Electronically Signed On 08-09-18 13:14:55 CDT by Palomo Dillard
== END 2018-08-08 11:50 | disposition home or self-care (01) | DRG 74 ==
LOC: ER 17:20 → 4TH 20:14 → 3RD-ICU 21:43
PROVIDERS: ADMIT Family Medicine; ATTEND Family Medicine
PROC: 30233S1 Transfusion of Nonautologous Globulin into Peripheral Vein, Percutaneous Approach (ICD-10-PCS; principal; 2018-08-03)
PROC: 00JU3ZZ Inspection of Spinal Canal, Percutaneous Approach (ICD-10-PCS; 2018-08-03)
PROC: 009U3ZX Drainage of Spinal Canal, Percutaneous Approach, Diagnostic (ICD-10-PCS; 2018-08-04)
PROC: B01BYZZ Fluoroscopy of Spinal Cord using Other Contrast (ICD-10-PCS; 2018-08-04)
DX: G51.0 Bell's palsy (principal); G61.0 Guillain-Barre syndrome; R47.1 Dysarthria and anarthria; E11.9 Type 2 diabetes mellitus without complications; Z79.84 Long term (current) use of oral hypoglycemic drugs; G62.89 Other specified polyneuropathies; G44.89 Other headache syndrome
CPT/HCPCS: 36415; 62270; 70553; 71045; 77003; 80048; 80053; 82164; 82306; 82607; 82945; 82962; 83735; 84100; 84157; 84165; 84238; 84443; 85025; 85610; 85652; 85730; 86403; 86592; 86618; 87040; 87070; 89050; 93005; 96361; 96374; 97163; 99285; A9577; J1568; J2405; J3010; J7030; Q4081